=== PATIENT | male | born 1960 | race Caucasian/White ===

== ENCOUNTER 2019-10-21 13:45 | Emergency (ER) | payer SELFPAY ==
[~2019-10-21] VITALS: Ht 165.1 cm; Wt 71.3 kg
--- NOTE | 2019-10-21 14:07 | NUR ---
PT TO CHAIR A
[2019-10-21 14:10] VITALS: BP 162/71
--- NOTE | 2019-10-21 14:30 | NUR ---
C/O LT FOOT PAIN S/P FB TO BOTTOM OF FOOT X 10 DAYS PAIN 3/10. lt foot red/swollen/hot to touch. PT DENIES N/V/D; AAOX4, PERRL, WITH EVEN AND STEADY GAIT; LUNGS CLEAR BL, BREATHING UNLABORED; HR EVEN AND REGULAR, BL PERIPHERAL PULSES PRESENT; BS ACTIVE X4, NO TENDERNESS TO PALPATION. PT DENIES ANY FEVER, CP, SOB, OR COUGH AT THIS TIME; PT STATES 3/10 PAIN AT THIS TIME; VSS; PATIENT POSITIONED FOR COMFORT; HOB ELEVATED; BEDRAILS UP X2; BED DOWN.
[2019-10-21] MEDS ORDERED: cefTRIAXone 1,000 MG in LIDOCAINE MPF 1% 2.1 ML IM ONE (15:05)
[2019-10-21] MEDS ORDERED: LIDOCAINE MPF 1% 5 ML ONE (15:10)
[2019-10-21] MEDS ORDERED: cefTRIAXone 1,000 MG VIAL ONE (15:10)
[2019-10-21 15:28] VITALS: BP 162/71
--- NOTE | 2019-10-21 15:29 | NUR ---
Patient discharged with v/s stable. Written and verbal after care instructions given and explained. Patient alert, oriented and verbalized understanding of instructions. Ambulatory with steady gait. All questions addressed prior to discharge. ID band removed. Patient advised to follow up with PMD. Rx of KEFLEX AND MOTRIN given. Patient educated on indication of medication including possible reaction and side effects. Opportunity to ask questions provided and answered.
== END 2019-10-21 15:29 | disposition home or self-care (01) ==
LOC: MED 13:45
DX: S91.332A Puncture wound without foreign body, left foot, initial encounter (principal); W50.0XXD Accidental hit or strike by another person, subsequent encounter
CPT/HCPCS: 90471; 90715; 96372; 99284; J0696; J2001